=== PATIENT | female | born 1965 | race African-American/Black ===

== ENCOUNTER 2016-09-11 08:39 | Day surgery (SDC) | payer OTHER ==
[2016-09-10 13:28] VITALS: BMI 31.3
[2016-09-11] MEDS ORDERED: oxyCODONE HCL 5 MG TABLET PO ONE (10:14)
[2016-09-11] MEDS ORDERED: MIDAZOLAM HCL 2 MG/2 ML SINGLE DOSE VIAL ONE ×2 (11:18)
[2016-09-11] MEDS ORDERED: PROPOFOL 20 ML ONE ×2 (11:23→11:34)
[2016-09-11] MEDS ORDERED: LACTATED RINGERS SOLUTION 1,000 ML IV SCH (11:45)
[2016-09-11] MEDS ORDERED: ONDANSETRON 4 MG/2 ML VIAL IVPUSH PRN (12:00)
[2016-09-11 19:00] VITALS: BP 155/90; PULSE 72; TEMP 98.1
--- NOTE | 2016-09-12 12:04 | OP ---
DATE OF OPERATION: 09/11/2016 PREOPERATIVE DIAGNOSIS: Low back pain with lumbar radiculopathy on left side. POSTOPERATIVE DIAGNOSIS: Low back pain with lumbar radiculopathy on left side. ANESTHESIA: Local and MAC. ANESTHESIOLOGIST: Juanito Calabrese CRNA PROCEDURE: I discussed with her about risks, benefits, and alternative treatments, not only limited to infection, fever, holding area, numbness, tingling, weakness, injury to blood vessels, muscles, and nerves. Patient understood, agreed, and signed the written consent. The patient was placed in the prone position. Head, neck, abdomen supported with pillow. Lumbosacral are was prepped with Betadine x3 and draped. Left L4-5 area was identified. At this level 3 mL of 1% lidocaine was injected. A 3-1/2-inch 20-gauge Tuohy needle was used to approach the epidural space with loss of resistance technique interlaminar at the L4-L5 level. After negative aspiration, 3 mL of Omnipaque 180 was injected to see the flow of dye into the epidural space both cranially and caudally. There was no venous uptake or spread into CSF. Celestone 2.5 mL mixed with 2.5 mL of Marcaine 0.25% preservative-free, total of 5 mL was injected into the epidural space after negative aspiration. While needle was withdrawn, 2 mL of 1% lidocaine was infiltrated. Patient tolerated the procedure well. There were no immediate complications. Betadine was wiped off. Sterile bandage was placed. The patient was transferred to recovery room. Patient was told to apply ice. If any problem, call me or report to the [facility]. Patient will follow up in the office. EVE BREWER M.D. [id number]
== END 2016-09-11 12:50 | disposition home or self-care (01) ==
LOC: FASU 08:39
PROVIDERS: ATTEND Physical Medicine & Rehabilitation
PROC: 3E0R3CZ (ICD-10-PCS; 2016-09-11)
PROC: B01B1ZZ Fluoroscopy of Spinal Cord using Low Osmolar Contrast (ICD-10-PCS; 2016-09-11)
PROC: 3E0R33Z Introduction of Anti-inflammatory into Spinal Canal, Percutaneous Approach (ICD-10-PCS; principal; 2016-09-11 11:27)
DX: M54.16 Radiculopathy, lumbar region (principal); M54.5 Low back pain
CPT/HCPCS: 72100-TC

== ENCOUNTER 2016-10-16 07:17 | Day surgery (SDC) | payer OTHER ==
[2016-10-09 10:44] VITALS: BMI 31.0
[2016-10-16 07:38] VITALS: TEMP 98.1
[2016-10-16] MEDS ORDERED: MIDAZOLAM HCL 2 MG/2 ML SINGLE DOSE VIAL ONE (09:20)
[2016-10-16] MEDS ORDERED: PROPOFOL 20 ML ONE ×2 (09:20→10:24)
[2016-10-16] MEDS ORDERED: BUPIVACAINE HCL/PF 2.5 MG/ML - 30 ML VIAL IJ ONE (09:22)
[2016-10-16] MEDS ORDERED: BUPIVACAINE HCL/PF 0.5% (5MG/ML) 10 ML VIAL ONE (09:22)
[2016-10-16 11:31] VITALS: BP 142/80; PULSE 62
--- NOTE | 2016-10-16 12:09 | OP ---
DATE OF OPERATION: 10/16/2016 PREOPERATIVE DIAGNOSIS: Low back pain with lumbar radiculopathy. POSTOPERATIVE DIAGNOSIS: Low back pain with lumbar radiculopathy. PROCEDURE: Lumbar epidural steroid injection intraluminal at right L4-L5 level. ANESTHESIA: Local and MAC. ANESTHESIOLOGIST: Dr. Wilson DESCRIPTION OF PROCEDURE: I discussed with her about risks, benefits, and alternative treatment not only limited to infection, fever, headache, numbness, weakness, injury to blood vessels, muscles, and nerves. The patient understood, agreed, and signed the written consent. The patient was placed in prone position with head, abdomen, and legs supported with pillows. The lumbosacral area was prepped and draped with Betadine x3 and alcohol x3. The lumbosacral area was identified under fluoroscopy. At the level of right L4-L5, there was 2 mL of 1% lidocaine infiltrated into the skin and subcutaneous tissue. A 20-gauge 3-1/2- inch Tuohy needle was used to approach the epidural space with crul-te-yaduzsxayz technique with intermittent fluoroscopy both AP and oblique view. Aspiration was done, which was negative for CSF and blood. Omnipaque 180 was injected to see the flow type both cranially and caudally. There was no vascular spread of CSF. Then 2.5 mL of betamethasone mixed with 0.25% Marcaine. A total volume of 4 mL was injected into the epidural space after negative aspiration. While Tuohy needle was withdrawn, 1 mL of 1% lidocaine was injected. Bleeding was checked. Betadine was wiped off. A sterile bandage was placed. The patient was transferred to recovery room. The patient was observed and discharged as per ASU criteria. The patient was given a follow up appointment. The patient was told to apply ice. If any problem, call me or report to the ER. Jamaal DANIELS/[id number] MTDJayy
== END 2016-10-16 11:30 | disposition home or self-care (01) ==
LOC: FASU 07:17
PROVIDERS: ATTEND Physical Medicine & Rehabilitation
PROC: 3E0R3CZ (ICD-10-PCS; 2016-10-16)
PROC: B01B1ZZ Fluoroscopy of Spinal Cord using Low Osmolar Contrast (ICD-10-PCS; 2016-10-16)
PROC: 3E0R33Z Introduction of Anti-inflammatory into Spinal Canal, Percutaneous Approach (ICD-10-PCS; principal; 2016-10-16 10:24)
DX: M54.16 Radiculopathy, lumbar region (principal); M54.5 Low back pain
CPT/HCPCS: 72100-TC

== ENCOUNTER 2017-04-23 08:45 | Day surgery (SDC) | payer OTHER ==
[2017-04-22 11:05] VITALS: BMI 31.3
[2017-04-23 09:06] VITALS: TEMP 97.8
[2017-04-23] MEDS ORDERED: MIDAZOLAM HCL 2 MG/2 ML SINGLE DOSE VIAL ONE ×2 (09:44→10:03)
[2017-04-23 11:39] VITALS: BP 140/91; PULSE 75
--- NOTE | 2017-04-23 11:47 | PROC ---
Procedure Note Procedure: Date of service: 04/23/2017 Preoperative Diagnosis: Low back pain and lumbar radiculopathy on Left Postoperative Diagnosis: Same Procedure Performed: Lumbar Epidural Steroid Injection (LESI) on Left L4-5with dye under Fluoroscopy Anesthesia: Local / MAC Anesthesiologist: Procedure: I discussed with the patient in detail about the risks, benefits, and alternatives to treatment not only limited to infection, headache, numbness , weakness, and injury to nerves, blood vessels and muscles. The patient understood, agreed and signed the written consent. The patient was placed in the prone position with the head, abdomen and legs supported with the pillows. The lumbosacral area was prepped and draped with Betadine times three in a sterile fashion. Lumbar vertebrae were identified under the C-arm. At L4-5 level on the Left side, 3 ml of 1 % Lidocaine was infiltrated into the skin and subcutaneous tissue. A 3 inch, #20 gauge Tuohy needle was advanced to the epidural space with loss of resistance technique under fluoroscopic guidance. Aspiration was negative for cerebrospinal fluid and blood. 2ml of Omnipaque ( radio-opaque dye) was injected to confirm the tip of the needle into epidural space and spread of dye. There was no CSF or vascular spread. The spread of dye was noted cranially and caudally on epidurogram. Aspiration was done again which was negative. A solution of 2.5 ml of Celestone, 2.5 ml of 0.25% Marcaine and a total of 5 ml was injected slowly. While Tuohy needle was withdrawn 2.0 ml of 1 % Lidocaine was infiltrated. Bleeding was checked. Betadine was wiped off. A sterile bandage was placed. The patient tolerated the procedure well. There were no immediate complications. The patient was transferred to the recovery room. The patient was observed for some time and discharged as per ASU criteria. The patient was told to apply ice at the injection site. Follow up appointment was given and also call my office at [phone]. If there is any problem, call my office or report to Emergency Room. Elias Lo M.D.
== END 2017-04-23 11:55 | disposition home or self-care (01) ==
LOC: JASU-SURG 08:45
PROVIDERS: ATTEND Physical Medicine & Rehabilitation
PROC: 3E0R33Z Introduction of Anti-inflammatory into Spinal Canal, Percutaneous Approach (ICD-10-PCS; 2017-04-23)
PROC: B01BYZZ Fluoroscopy of Spinal Cord using Other Contrast (ICD-10-PCS; 2017-04-23)
PROC: 3E0R3BZ Introduction of Anesthetic Agent into Spinal Canal, Percutaneous Approach (ICD-10-PCS; principal; 2017-04-23 10:30)
DX: M54.16 Radiculopathy, lumbar region (principal); M54.5 Low back pain
CPT/HCPCS: 76000-TC

== ENCOUNTER 2017-07-09 08:30 | Day surgery (SDC) | payer OTHER ==
[2017-07-05 13:10] VITALS: BMI 31.0
[2017-07-09 09:05] VITALS: TEMP 97.7
[2017-07-09] MEDS ORDERED: SUCCINYLCHOLINE CHLORIDE 200 MG/10 ML VIAL ONE (10:34)
[2017-07-09] MEDS ORDERED: PROPOFOL 20 ML ONE ×2 (10:34→10:45)
[2017-07-09] MEDS ORDERED: LIDOCAINE HCL 1%, 10 MG/ML (20ML VIAL) INF ONE (10:43)
[2017-07-09] MEDS ORDERED: IOHEXOL 180 MG/1 ML ML IJ ONE (10:44)
[2017-07-09] MEDS ORDERED: BUPIVACAINE HCL/PF 0.25% (2.5MG/ML) 10 ML VIAL IJ ONE (10:51)
[2017-07-09] MEDS ORDERED: BETAMET ACET/BETAMET NA PH 30 MG/5 ML VIAL IJ ONE (10:51)
[2017-07-09 11:16] VITALS: PULSE 85
[2017-07-09 12:39] VITALS: BP 131/71
--- NOTE | 2017-07-23 13:41 | PROC ---
Procedure Note Procedure: Date of service: 07/09/2017 Preoperative Diagnosis: Low back pain and lumbar radiculopathy on Left Postoperative Diagnosis: Same Procedure Performed: Lumbar Epidural Steroid Injection (LESI) on Left L4-5 with dye under Fluoroscopy Anesthesia: Local / MAC Anesthesiologist: Procedure: I discussed with the patient in detail about the risks, benefits, and alternatives to treatment not only limited to infection, headache, numbness , weakness, and injury to nerves, blood vessels and muscles. The patient understood, agreed and signed the written consent. The patient was placed in the prone position with the head, abdomen and legs supported with the pillows. The lumbosacral area was prepped and draped with Betadine times three in a sterile fashion. Lumbar vertebrae were identified under the C-arm. At L4-5 level on the Left side, 3 ml of 1 % Lidocaine was infiltrated into the skin and subcutaneous tissue. A 3 inch, #20 gauge Tuohy needle was advanced to the epidural space with loss of resistance technique under fluoroscopic guidance. Aspiration was negative for cerebrospinal fluid and blood. 2ml of Omnipaque ( radio-opaque dye) was injected to confirm the tip of the needle into epidural space and spread of dye. There was no CSF or vascular spread. The spread of dye was noted cranially and caudally on epidurogram. Aspiration was done again which was negative. A solution of 2.5 ml of Celestone, 2.5 ml of 0.25% Marcaine and a total of 5 ml was injected slowly. While Tuohy needle was withdrawn 2.0 ml of 1 % Lidocaine was infiltrated. Bleeding was checked. Betadine was wiped off. A sterile bandage was placed. The patient tolerated the procedure well. There were no immediate complications. The patient was transferred to the recovery room. The patient was observed for some time and discharged as per ASU criteria. The patient was told to apply ice at the injection site. Follow up appointment was given and also call my office at [phone]. If there is any problem, call my office or report to Emergency Room. Elias Lo M.D.
== END 2017-07-09 12:43 | disposition home or self-care (01) ==
LOC: JASU-SURG 08:30
PROVIDERS: ATTEND Physical Medicine & Rehabilitation
PROC: 3E0R33Z Introduction of Anti-inflammatory into Spinal Canal, Percutaneous Approach (ICD-10-PCS; 2017-07-09)
PROC: B01BYZZ Fluoroscopy of Spinal Cord using Other Contrast (ICD-10-PCS; 2017-07-09)
PROC: 3E0R3BZ Introduction of Anesthetic Agent into Spinal Canal, Percutaneous Approach (ICD-10-PCS; principal; 2017-07-09 10:00)
DX: M54.16 Radiculopathy, lumbar region (principal); M54.5 Low back pain
CPT/HCPCS: 76000-TC-FY

== ENCOUNTER 2017-11-05 07:12 | Day surgery (SDC) | payer OTHER ==
[2017-11-04 17:11] VITALS: BMI 31.1
[2017-11-05] MEDS ORDERED: PROPOFOL 20 ML ONE (08:57)
[2017-11-05] MEDS ORDERED: LIDOCAINE HCL 1%, 10 MG/ML (20ML VIAL) INF ONE (09:03)
[2017-11-05] MEDS ORDERED: IOHEXOL 180 MG/1 ML ML IJ ONE (09:04)
[2017-11-05] MEDS ORDERED: BUPIVACAINE HCL/PF 0.25% (2.5MG/ML) 10 ML VIAL IJ ONE (09:06)
[2017-11-05] MEDS ORDERED: BETAMET ACET/BETAMET NA PH 30 MG/5 ML VIAL IM ONE (09:07)
[2017-11-05 09:25] VITALS: TEMP 98.8
[2017-11-05 10:11] VITALS: BP 139/89; PULSE 75
--- NOTE | 2017-11-05 12:35 | PROC ---
Procedure Note Procedure: Date of service: 11/05/2017 Preoperative Diagnosis: Low back pain and lumbar radiculopathy on right Postoperative Diagnosis: Same Procedure Performed: Lumbar Epidural Steroid Injection (LESI) on Right L4-5 with dye under Fluoroscopy Anesthesia: Local / MAC Anesthesiologist: Dr. Cano Procedure: I discussed with the patient in detail about the risks, benefits, and alternatives to treatment not only limited to infection, headache, numbness , weakness, and injury to nerves, blood vessels and muscles. The patient understood, agreed and signed the written consent. The patient was placed in the prone position with the head, abdomen and legs supported with the pillows. The lumbosacral area was prepped and draped with Betadine times three in a sterile fashion. Lumbar vertebrae were identified under the C-arm. At L4-5 level on the right side, 3 ml of 1 % Lidocaine was infiltrated into the skin and subcutaneous tissue. A 3 inch, #20 gauge Tuohy needle was advanced to the epidural space with loss of resistance technique under fluoroscopic guidance. Aspiration was negative for cerebrospinal fluid and blood. 2ml of Omnipaque ( radio-opaque dye) was injected to confirm the tip of the needle into epidural space and spread of dye. There was no CSF or vascular spread. The spread of dye was noted cranially and caudally on epidurogram. Aspiration was done again which was negative. A solution of 2.5 ml of Celestone, 2.5 ml of 0.25% Marcaine and 2 ml of preservative-free Normal Saline and a total of 5 ml was injected slowly. While Tuohy needle was withdrawn 2.0 ml of 1 % Lidocaine was infiltrated. Bleeding was checked. Betadine was wiped off. A sterile bandage was placed. The patient tolerated the procedure well. There were no immediate complications. The patient was transferred to the recovery room. The patient was observed for some time and discharged as per ASU criteria. The patient was told to apply ice at the injection site. Follow up appointment was given and also call my office at [phone]. If there is any problem, call my office or report to Emergency Room. Elias Lo M.D.
== END 2017-11-05 10:10 | disposition home or self-care (01) ==
LOC: JASU-SURG 07:12
PROVIDERS: ATTEND Physical Medicine & Rehabilitation
PROC: 3E0R33Z Introduction of Anti-inflammatory into Spinal Canal, Percutaneous Approach (ICD-10-PCS; 2017-11-05)
PROC: B01BYZZ Fluoroscopy of Spinal Cord using Other Contrast (ICD-10-PCS; 2017-11-05)
PROC: 3E0R3BZ Introduction of Anesthetic Agent into Spinal Canal, Percutaneous Approach (ICD-10-PCS; principal; 2017-11-05 08:30)
DX: M54.16 Radiculopathy, lumbar region (principal); M54.5 Low back pain
CPT/HCPCS: 76000-TC-FY

== ENCOUNTER 2017-12-31 08:06 | Day surgery (SDC) | payer OTHER ==
[2017-12-30 08:41] VITALS: BMI 31.1
[2017-12-31 08:28] VITALS: TEMP 98
[2017-12-31] MEDS ORDERED: MIDAZOLAM HCL 2 MG/2 ML SINGLE DOSE VIAL ONE ×2 (10:58→11:01)
[2017-12-31] MEDS ORDERED: BUPIVACAINE HCL/PF (5 MG/ML) 30 ML VIAL IJ ONE (11:02)
[2017-12-31] MEDS ORDERED: LIDOCAINE HCL 1%, 10 MG/ML (20ML VIAL) PNB ONE (11:03)
[2017-12-31] MEDS ORDERED: BETAMET ACET/BETAMET NA PH 30 MG/5 ML VIAL IM ONE (11:03)
[2017-12-31 13:03] VITALS: BP 126/78; PULSE 80
== END 2017-12-31 13:04 | disposition home or self-care (01) ==
LOC: JASU-SURG 08:06
PROVIDERS: ATTEND Physical Medicine & Rehabilitation
PROC: 3E0T33Z Introduction of Anti-inflammatory into Peripheral Nerves and Plexi, Percutaneous Approach (ICD-10-PCS; 2017-12-31)
PROC: BR16YZZ Fluoroscopy of Lumbar Facet Joint(s) using Other Contrast (ICD-10-PCS; 2017-12-31)
PROC: 3E0T3BZ Introduction of Anesthetic Agent into Peripheral Nerves and Plexi, Percutaneous Approach (ICD-10-PCS; principal; 2017-12-31 09:30)
DX: M46.89 Other specified inflammatory spondylopathies, multiple sites in spine (principal); M54.5 Low back pain; M54.16 Radiculopathy, lumbar region
CPT/HCPCS: 76000-TC-FY

== ENCOUNTER 2018-01-28 07:36 | Day surgery (SDC) | payer OTHER ==
[2018-01-27 15:31] VITALS: BMI 33.6
[~2018-01-28 07:36] MED LIST: BETAMET ACET/BETAMET NA PH 30 MG/5 ML VIAL IM ONE; BUPIVACAINE HCL/PF 0.25% (2.5MG/ML) 10 ML VIAL IJ ONE; LIDOCAINE HCL 1% PRESERVATIVE FREE - 30ML VIAL IJ ONE
[2018-01-28 07:54] VITALS: TEMP 98.4
[2018-01-28] MEDS ORDERED: PROPOFOL 20 ML ONE ×3 (08:43→09:55)
[2018-01-28] MEDS ORDERED: MIDAZOLAM HCL 2 MG/2 ML SINGLE DOSE VIAL ONE ×2 (08:45)
[2018-01-28] MEDS ORDERED: LIDOCAINE HCL/PF 2% SDV 5ML VIAL ONE (08:45)
[2018-01-28] MEDS ORDERED: SUCCINYLCHOLINE CHLORIDE 200 MG/10 ML VIAL ONE (08:47)
[2018-01-28] MEDS ORDERED: BUPIVACAINE HCL/PF 0.5% (5MG/ML) 10 ML VIAL IJ ONE ×2 (09:50)
[2018-01-28] MEDS ORDERED: IOHEXOL 180 MG/1 ML ML IJ ONE (09:50)
[2018-01-28] MEDS ORDERED: LIDOCAINE HCL 1% PRESERVATIVE FREE - 30ML VIAL IJ ONE (09:50)
[2018-01-28] MEDS ORDERED: BETAMET ACET/BETAMET NA PH 30 MG/5 ML VIAL IM ONE (09:50)
[2018-01-28 13:03] VITALS: BP 160/94; PULSE 64
== END 2018-01-28 11:30 | disposition home or self-care (01) ==
LOC: JASU-SURG 07:36
PROVIDERS: ATTEND Physical Medicine & Rehabilitation
PROC: 3E0T33Z Introduction of Anti-inflammatory into Peripheral Nerves and Plexi, Percutaneous Approach (ICD-10-PCS; 2018-01-28)
PROC: BR16YZZ Fluoroscopy of Lumbar Facet Joint(s) using Other Contrast (ICD-10-PCS; 2018-01-28)
PROC: 3E0T3BZ Introduction of Anesthetic Agent into Peripheral Nerves and Plexi, Percutaneous Approach (ICD-10-PCS; principal; 2018-01-28 09:00)
DX: M46.89 Other specified inflammatory spondylopathies, multiple sites in spine (principal); M54.5 Low back pain
CPT/HCPCS: 76000-TC-FY

== ENCOUNTER 2018-07-22 10:40 | Day surgery (SDC) | payer OTHER ==
[~2018-07-22 10:40] MED LIST changes: +BETAMET ACET/BETAMET NA PH 30 MG/5 ML VIAL IJ ONE; -BETAMET ACET/BETAMET NA PH 30 MG/5 ML VIAL IM ONE; +IOHEXOL 180 MG/1 ML ML IJ ONE; -LIDOCAINE HCL 1% PRESERVATIVE FREE - 30ML VIAL IJ ONE; +LIDOCAINE HCL 1%, 10 MG/ML (50 mL VIAL) IJ ONE
[2018-07-22 11:01] VITALS: BMI 33.6
[2018-07-22] MEDS ORDERED: PROPOFOL 20 ML ONE ×2 (12:04→12:13)
[2018-07-22] MEDS ORDERED: MIDAZOLAM HCL 2 MG/2 ML SINGLE DOSE VIAL ONE (12:04)
[2018-07-22] MEDS ORDERED: IOHEXOL 180 MG/1 ML ML IJ ONE (12:14)
[2018-07-22] MEDS ORDERED: LIDOCAINE HCL 1%, 10 MG/ML (50 mL VIAL) IJ ONE (12:14)
[2018-07-22] MEDS ORDERED: BETAMET ACET/BETAMET NA PH 30 MG/5 ML VIAL IJ ONE (12:14)
[2018-07-22] MEDS ORDERED: BUPIVACAINE HCL/PF 0.25% (2.5MG/ML) 10 ML VIAL IJ ONE (12:14)
--- NOTE | 2018-07-22 12:26 | PROC ---
Procedure Note Procedure: Date of service: 07/22/2018 Preoperative Diagnosis: Low back pain and lumbar radiculopathy on Left Postoperative Diagnosis: Same Procedure Performed: Lumbar Epidural Steroid Injection (LESI) on Left L4-5 with dye under Fluoroscopy Anesthesia: Local / MAC Anesthesiologist: Procedure: I discussed with the patient in detail about the risks, benefits, and alternatives to treatment not only limited to infection, headache, numbness , weakness, and injury to nerves, blood vessels and muscles. The patient understood, agreed and signed the written consent. The patient was placed in the prone position with the head, abdomen and legs supported with the pillows. The lumbosacral area was prepped and draped with Betadine times three in a sterile fashion. Lumbar vertebrae were identified under the C-arm. At L4-5 level on the Left side, 3 ml of 1 % Lidocaine was infiltrated into the skin and subcutaneous tissue. A 3 inch, #20 gauge Tuohy needle was advanced to the epidural space with loss of resistance technique under fluoroscopic guidance. Aspiration was negative for cerebrospinal fluid and blood. 2ml of Omnipaque ( radio-opaque dye) was injected to confirm the tip of the needle into epidural space and spread of dye. There was no CSF or vascular spread. The spread of dye was noted cranially and caudally on epidurogram. Aspiration was done again which was negative. A solution of 2.5 ml of Celestone, 2.5 ml of 0.25% Marcaine and a total of 5 ml was injected slowly. While Tuohy needle was withdrawn 2.0 ml of 1 % Lidocaine was infiltrated. Bleeding was checked. Betadine was wiped off. A sterile bandage was placed. The patient tolerated the procedure well. There were no immediate complications. The patient was transferred to the recovery room. The patient was observed for some time and discharged as per ASU criteria. The patient was told to apply ice at the injection site. Follow up appointment was given and also call my office at [phone]. If there is any problem, call my office or report to Emergency Room. Elias Lo M.D.
[2018-07-22 12:57] VITALS: TEMP 97.5
[2018-07-22 13:35] VITALS: BP 151/88; PULSE 76
== END 2018-07-22 13:36 | disposition home or self-care (01) ==
LOC: JASU-SURG 10:40
PROVIDERS: ATTEND Physical Medicine & Rehabilitation
PROC: 3E0R33Z Introduction of Anti-inflammatory into Spinal Canal, Percutaneous Approach (ICD-10-PCS; 2018-07-22)
PROC: B01BYZZ Fluoroscopy of Spinal Cord using Other Contrast (ICD-10-PCS; 2018-07-22)
PROC: 3E0R3BZ Introduction of Anesthetic Agent into Spinal Canal, Percutaneous Approach (ICD-10-PCS; principal; 2018-07-22 12:30)
DX: M54.16 Radiculopathy, lumbar region (principal); M54.5 Low back pain

== ENCOUNTER 2018-10-14 08:38 | Day surgery (SDC) | payer OTHER ==
[2018-10-13 11:58] VITALS: BMI 33.5
[2018-10-14] MEDS ORDERED: MIDAZOLAM HCL 2 MG/2 ML SINGLE DOSE VIAL ONE (09:09)
[2018-10-14] MEDS ORDERED: oxyCODONE HCL 5 MG TABLET PO PRN ×2 (10:07)
[2018-10-14] MEDS ORDERED: PROPOFOL 20 ML ONE ×2 (10:53)
[2018-10-14] MEDS ORDERED: LIDOCAINE HCL 1%, 10 MG/ML (20ML VIAL) NR ONE (11:03)
[2018-10-14] MEDS ORDERED: IOHEXOL 180 MG/1 ML ML IJ ONE (11:04)
[2018-10-14] MEDS ORDERED: BETAMET ACET/BETAMET NA PH 30 MG/5 ML VIAL IM ONE (11:05)
[2018-10-14] MEDS ORDERED: BUPIVACAINE HCL/PF 0.25% (2.5MG/ML) 10 ML VIAL IJ ONE (11:06)
[2018-10-14] MEDS ORDERED: LIDOCAINE HCL 1%, 10 MG/ML (20ML VIAL) ONE (11:08)
[2018-10-14] MEDS ORDERED: BUPIVACAINE HCL/PF 0.25% (2.5MG/ML) 10 ML VIAL ONE (11:08)
[2018-10-14] MEDS ORDERED: BETAMET ACET/BETAMET NA PH 30 MG/5 ML VIAL ONE (11:08)
[2018-10-14 11:51] VITALS: TEMP 98.3
[2018-10-14 12:17] VITALS: BP 139/88; PULSE 78
== END 2018-10-14 12:21 | disposition home or self-care (01) ==
LOC: JASU-SURG 08:38
PROVIDERS: ATTEND Physical Medicine & Rehabilitation
PROC: 3E0R33Z Introduction of Anti-inflammatory into Spinal Canal, Percutaneous Approach (ICD-10-PCS; 2018-10-14)
PROC: B01BYZZ Fluoroscopy of Spinal Cord using Other Contrast (ICD-10-PCS; 2018-10-14)
PROC: 3E0R3BZ Introduction of Anesthetic Agent into Spinal Canal, Percutaneous Approach (ICD-10-PCS; principal; 2018-10-14 09:30)
DX: M54.16 Radiculopathy, lumbar region (principal); M54.5 Low back pain
CPT/HCPCS: 76000-TC-FY

== ENCOUNTER 2018-12-26 08:46 | Day surgery (SDC) | payer OTHER ==
[2018-12-25 16:12] VITALS: BMI 33.6
[2018-12-26] MEDS ORDERED: BETAMET ACET/BETAMET NA PH 30 MG/5 ML VIAL IM ONE (10:37)
[2018-12-26] MEDS ORDERED: IOHEXOL 180 MG/1 ML ML IT ONE (10:39)
[2018-12-26] MEDS ORDERED: PROPOFOL 20 ML ONE ×3 (10:47→11:13)
[2018-12-26] MEDS ORDERED: BUPIVACAINE HCL/PF 0.5% (5MG/ML) 10 ML VIAL IJ ONE (10:50)
[2018-12-26] MEDS ORDERED: LIDOCAINE HCL 1%, 10 MG/ML (20ML VIAL) INF ONE (10:50)
[2018-12-26 11:28] VITALS: TEMP 97.7
[2018-12-26] MEDS ORDERED: oxyCODONE HCL 5 MG TABLET PO PRN ×2 (12:05)
[2018-12-26] MEDS ORDERED: oxyCODONE HCL 5 MG TABLET ONE (12:13)
[2018-12-26 13:14] VITALS: BP 139/90; PULSE 78
== END 2018-12-26 13:10 | disposition home or self-care (01) ==
LOC: JASU-SURG 08:46
PROVIDERS: ATTEND Physical Medicine & Rehabilitation
PROC: 3E0R3BZ Introduction of Anesthetic Agent into Spinal Canal, Percutaneous Approach (ICD-10-PCS; 2018-12-26)
PROC: 3E0R33Z Introduction of Anti-inflammatory into Spinal Canal, Percutaneous Approach (ICD-10-PCS; 2018-12-26)
PROC: BR16YZZ Fluoroscopy of Lumbar Facet Joint(s) using Other Contrast (ICD-10-PCS; principal; 2018-12-26 08:30)
DX: M46.96 Unspecified inflammatory spondylopathy, lumbar region (principal); M54.5 Low back pain
CPT/HCPCS: 76000-TC-FY

== ENCOUNTER 2019-05-04 11:38 | Day surgery (SDC) | payer OTHER ==
[2019-05-04 11:58] VITALS: BMI 33.5
[2019-05-04] MEDS ORDERED: LIDOCAINE HCL 1%, 10 MG/ML (20ML VIAL) ONE (14:19)
[2019-05-04] MEDS ORDERED: MIDAZOLAM HCL 2 MG/2 ML SINGLE DOSE VIAL ONE ×3 (14:29→14:47)
[2019-05-04] MEDS ORDERED: BUPIVACAINE HCL/PF 0.5% (5 MG/ML) 30 ML VIAL IJ ONE (14:49)
[2019-05-04] MEDS ORDERED: LIDOCAINE HCL 1%, 10 MG/ML (20ML VIAL) INF ONE (14:49)
[2019-05-04] MEDS ORDERED: IOHEXOL 180 MG/1 ML ML IJ ONE (14:49)
[2019-05-04] MEDS ORDERED: PROPOFOL 20 ML ONE (14:51)
[2019-05-04 15:24] VITALS: BP 127/78; PULSE 71; TEMP 97.1
--- NOTE | 2019-05-19 22:37 | PROC ---
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 The patient understood, agreed and signed the written consent. The patient was placed in the prone position with the head, abdomen and legs supported with the pillows. The patients lower back was prepped and draped in a sterile fashion. Under C-arm and Scottie dog view eye was identified the L2-3, L3-4 and L4-5 levels on Left/Right side. At the level of L3-4 (L3) on Rigth , 2 ml of 1% Lidocaine was infiltrated into the skin and subcutaneous tissue. A 5 inch #22 guage spinal needle was used to approach the eye of the Scottie dog in the oblique view until the tip of the needle contacted the bone with the use of intermittent fluoroscopy. Needle placement was confirmed both in the AP and oblique view. Aspiration was done which was negative for blood. 0.20 ml of dye omnipaque was injected to see the spread of the dye. A solution of O.5% marciane 5 ml mixed with one ml of Celestone was prepared. A solution of 1 ml of this solution was injected at this level. While the needle was withdrawn 1 ml of 1% Lidocaine was infiltrated. A similar procedure was repeated at left/ Right L4-5 (L4) and L5-S1 (L5) and left L3-4 level. The patient tolerated the procedure well. Bleeding was checked. There were no immediate complications. The patient was observed and asked about pain level. The patient mentioned that there was improvement was more than 90%. The patient was told to apply ice at the injection sites. If there is any problem, call my office or report to the ER . The patient was discharged as per ASC criteria. Elias Lo M.D.
== END 2019-05-04 16:20 | disposition home or self-care (01) ==
LOC: JASU-SURG 11:38
PROVIDERS: ATTEND Physical Medicine & Rehabilitation
PROC: 3E0T3BZ Introduction of Anesthetic Agent into Peripheral Nerves and Plexi, Percutaneous Approach (ICD-10-PCS; 2019-05-04)
PROC: BR16YZZ Fluoroscopy of Lumbar Facet Joint(s) using Other Contrast (ICD-10-PCS; 2019-05-04)
PROC: 3E0T33Z Introduction of Anti-inflammatory into Peripheral Nerves and Plexi, Percutaneous Approach (ICD-10-PCS; principal; 2019-05-04 13:30)
DX: M46.96 Unspecified inflammatory spondylopathy, lumbar region (principal); M54.5 Low back pain
CPT/HCPCS: 76000-TC-FY

== ENCOUNTER 2019-07-17 09:09 | Day surgery (SDC) | payer OTHER ==
[2019-07-16 18:06] VITALS: BMI 33.5
[2019-07-17] MEDS ORDERED: PROPOFOL 20 ML ONE ×2 (12:09→12:26)
[2019-07-17] MEDS ORDERED: MIDAZOLAM HCL 2 MG/2 ML SINGLE DOSE VIAL ONE (12:10)
[2019-07-17] MEDS ORDERED: BETAMET ACET/BETAMET NA PH 30 MG/5 ML VIAL ONE ×2 (12:12→12:51)
[2019-07-17] MEDS ORDERED: BUPIVACAINE HCL/PF 0.5% (5MG/ML) 10 ML VIAL IJ ONE (12:23)
[2019-07-17] MEDS ORDERED: LIDOCAINE HCL 1%, 10 MG/ML (20ML VIAL) ONE (12:51)
[2019-07-17] MEDS ORDERED: BUPIVACAINE HCL/PF 0.25% (2.5MG/ML) 10 ML VIAL ONE (12:52)
[2019-07-17 13:19] VITALS: TEMP 97.9
[2019-07-17 14:18] VITALS: BP 130/78; PULSE 70
--- NOTE | 2019-07-19 20:13 | PROC ---
Procedure Note Procedure: Date of service: 07/17/2019 Preoperative Diagnosis: Low back pain and Lumbar Facet Arthropathy on right / Left Postoperative Diagnosis: Same Procedure Performed: Lumbar Facet Diagnosic blocks on Right / Left L3-4/ L4-5/ L5-S1 with dye under Fluoroscopy Anesthesia: Local / MAC Anesthesiologist: Procedure: I discussed with the patient in detail about the risks, benefits and alternatives to treatment not only limited to infection, headache, numbness, weakness and injury to nerves, spinal cord, blood vessels and muscles. The patient understood, agreed and signed the written consent. The patient was placed in the prone position with the head, abdomen and legs supported with the pillows. The patients lower back was prepped and draped in a sterile fashion. Under C-arm and Scottie dog view eye was identified the L2-3, L3-4 and L4-5 levels on Left/Right side. At the level of L3-4 (L3) on Rigth , 2 ml of 1% Lidocaine was infiltrated into the skin and subcutaneous tissue. A 5 inch #22 guage spinal needle was used to approach the eye of the Scottie dog in the oblique view until the tip of the needle contacted the bone with the use of intermittent fluoroscopy. Needle placement was confirmed both in the AP and oblique view. Aspiration was done which was negative for blood. 0.20 ml of dye omnipaque was injected to see the spread of the dye. A solution of O.5% marciane 5 ml mixed with one ml of Celestone was prepared. A solution of 1 ml of this solution was injected at this level. While the needle was withdrawn 1 ml of 1% Lidocaine was infiltrated. A similar procedure was repeated at left/ Right L4-5 (L4) and L5-S1 (L5) and left L3-4 level. The patient tolerated the procedure well. Bleeding was checked. There were no immediate complications. The patient was observed and asked about pain level. The patient mentioned that there was improvement was more than 90%. The patient was told to apply ice at the injection sites. If there is any problem, call my office or report to the ER . The patient was discharged as per ASC criteria. Elias Lo M.D.
== END 2019-07-17 14:00 | disposition home or self-care (01) ==
LOC: JASU-SURG 09:09
PROVIDERS: ATTEND Physical Medicine & Rehabilitation
PROC: 3E0T33Z Introduction of Anti-inflammatory into Peripheral Nerves and Plexi, Percutaneous Approach (ICD-10-PCS; 2019-07-17)
PROC: BR16YZZ Fluoroscopy of Lumbar Facet Joint(s) using Other Contrast (ICD-10-PCS; 2019-07-17)
PROC: 3E0T3BZ Introduction of Anesthetic Agent into Peripheral Nerves and Plexi, Percutaneous Approach (ICD-10-PCS; principal; 2019-07-17 11:00)
DX: M47.816 Spondylosis without myelopathy or radiculopathy, lumbar region (principal); M54.5 Low back pain
CPT/HCPCS: 76000-TC-FY

== ENCOUNTER 2020-05-24 04:41 | Day surgery (SDC) | payer OTHER ==
[2020-05-20 14:50] VITALS: BMI 34.4
[2020-05-24] MEDS ORDERED: BUPIVACAINE HCL/PF 0.25% (2.5MG/ML) 10 ML VIAL IJ ONE ×2 (09:35)
[2020-05-24] MEDS ORDERED: LIDOCAINE HCL 1% PRESERVATIVE FREE - 30ML VIAL IJ ONE (09:35)
[2020-05-24] MEDS ORDERED: DEXAMETHASONE SOD PHOSPHATE 10 MG/1 ML VIAL IM ONE (09:35)
[2020-05-24] MEDS ORDERED: IOHEXOL 180 MG/1 ML ML IJ ONE (09:35)
[2020-05-24 12:42] VITALS: BP 130/80; PULSE 80; TEMP 97.8
== END 2020-05-24 11:30 | disposition home or self-care (01) ==
LOC: JASU-SURG 04:41
PROVIDERS: ATTEND Physical Medicine & Rehabilitation
PROC: 3E0R33Z Introduction of Anti-inflammatory into Spinal Canal, Percutaneous Approach (ICD-10-PCS; 2020-05-24)
PROC: 3E0R3BZ Introduction of Anesthetic Agent into Spinal Canal, Percutaneous Approach (ICD-10-PCS; principal; 2020-05-24 09:00)
DX: M54.16 Radiculopathy, lumbar region (principal); M54.5 Low back pain
CPT/HCPCS: 76000-TC-FY; J1100

== ENCOUNTER 2020-10-20 04:18 | Day surgery (SDC) | payer OTHER ==
[2020-09-27 12:59] VITALS: BMI 33.5
[2020-10-20] MEDS ORDERED: PROPOFOL 20 ML ONE ×2 (12:59→13:20)
[2020-10-20] MEDS ORDERED: MIDAZOLAM HCL 2 MG/2 ML SINGLE DOSE VIAL ONE ×2 (12:59)
[2020-10-20] MEDS ORDERED: LIDOCAINE HCL 1%, 10 MG/ML (20ML VIAL) NR ONE ×2 (13:13)
[2020-10-20] MEDS ORDERED: IOHEXOL 180 MG/1 ML ML IJ ONE (13:13)
[2020-10-20] MEDS ORDERED: DEXAMETHASONE SOD PHOSPHATE 10 MG/1 ML VIAL IM ONE (13:14)
[2020-10-20] MEDS ORDERED: BUPIVACAINE HCL/PF 0.5% (5MG/ML) 10 ML VIAL NR ONE (13:15)
[2020-10-20] MEDS ORDERED: DEXAMETHASONE SOD PHOSPHATE/PF 10 MG/ML SDV ONE (13:47)
[2020-10-20 16:25] VITALS: BP 151/86; PULSE 87; TEMP 97.3
== END 2020-10-20 16:27 | disposition home or self-care (01) ==
LOC: JASU-SURG 04:18
PROVIDERS: ATTEND Physical Medicine & Rehabilitation
PROC: 3E0R33Z Introduction of Anti-inflammatory into Spinal Canal, Percutaneous Approach (ICD-10-PCS; 2020-10-20)
PROC: B01BYZZ Fluoroscopy of Spinal Cord using Other Contrast (ICD-10-PCS; 2020-10-20)
PROC: 3E0R3BZ Introduction of Anesthetic Agent into Spinal Canal, Percutaneous Approach (ICD-10-PCS; principal; 2020-10-20 12:00)
DX: M54.16 Radiculopathy, lumbar region (principal)
CPT/HCPCS: J1100

== ENCOUNTER 2020-11-17 05:19 | Day surgery (SDC) | payer OTHER ==
[2020-11-16 15:04] VITALS: BMI 33.6
[2020-11-17] MEDS ORDERED: LIDOCAINE HCL/PF 1% SDV 5ML VIAL ONE (08:46)
[2020-11-17] MEDS ORDERED: BUPIVACAINE HCL/PF 0.25% (2.5MG/ML) 10 ML VIAL ONE (08:46)
[2020-11-17] MEDS ORDERED: MIDAZOLAM HCL 2 MG/2 ML SINGLE DOSE VIAL ONE (15:29)
[2020-11-17] MEDS ORDERED: PROPOFOL 20 ML ONE (15:29)
[2020-11-17] MEDS ORDERED: BETAMET ACET/BETAMET NA PH 30 MG/5 ML VIAL IM ONE ×2 (15:42)
[2020-11-17] MEDS ORDERED: BUPIVACAINE HCL/PF 0.5% (5MG/ML) 10 ML VIAL IJ ONE ×2 (15:42)
[2020-11-17] MEDS ORDERED: LIDOCAINE HCL 1% PRESERVATIVE FREE - 30ML VIAL IJ ONE (15:42)
[2020-11-17] MEDS ORDERED: IOHEXOL 180 MG/1 ML ML IJ ONE (15:42)
[2020-11-17 17:56] VITALS: BP 138/89; PULSE 72; TEMP 98.3
== END 2020-11-17 16:45 | disposition home or self-care (01) ==
LOC: JASU-SURG 05:19
PROVIDERS: ATTEND Physical Medicine & Rehabilitation
PROC: 3E0T33Z Introduction of Anti-inflammatory into Peripheral Nerves and Plexi, Percutaneous Approach (ICD-10-PCS; 2020-11-17)
PROC: 3E0T3BZ Introduction of Anesthetic Agent into Peripheral Nerves and Plexi, Percutaneous Approach (ICD-10-PCS; principal; 2020-11-17 14:30)
DX: M47.816 Spondylosis without myelopathy or radiculopathy, lumbar region (principal); M54.5 Low back pain
CPT/HCPCS: 76000-TC-FY

== ENCOUNTER 2022-07-26 16:20 | Emergency (ER) | payer OTHER ==
[2022-07-26] MEDS ORDERED: KETOROLAC TROMETHAMINE 30 MG/1 ML VIAL IM ONE (16:38)
[2022-07-26] MEDS ORDERED: ACETAMINOPHEN 500 MG TABLET (FP) PO ONE (16:41)
[2022-07-26 16:50] VITALS: RESP 20; BMI 33.5
[2022-07-26] MEDS ORDERED: DEXAMETHASONE 4 MG TABLET (FP) PO STA (17:04)
[2022-07-26] MEDS ORDERED: DEXAMETHASONE 4 MG TABLET (FP) ONE (17:23)
[2022-07-26] MEDS ORDERED: ALBUTEROL SO4 2.5/IPRATROPIUM 0.5 INH SOL 3 ML VIAL.NEB. NEB ONE (17:23)
[2022-07-26] MEDS ORDERED: ACETAMINOPHEN 500 MG TABLET (FP) ONE (17:23)
[2022-07-26] MEDS ORDERED: KETOROLAC TROMETHAMINE 30 MG/1 ML VIAL ONE (17:24)
[2022-07-26] MEDS: ALBUTEROL SO4 2.5/IPRATROPIUM 0.5 INH SOL 3 ML VIAL.NEB. NEB SCH ×2 (17:38→17:39)
[2022-07-26 18:29] VITALS: BP 146/78; PULSE 80; TEMP 99.9
== END 2022-07-26 18:39 | disposition home or self-care (01) ==
LOC: FER 16:20
PROC: 3E023GC Introduction of Other Therapeutic Substance into Muscle, Percutaneous Approach (ICD-10-PCS; principal; 2022-07-26)
PROC: 3E0F7GC Introduction of Other Therapeutic Substance into Respiratory Tract, Via Natural or Artificial Opening (ICD-10-PCS; 2022-07-26)
DX: J45.901 Unspecified asthma with (acute) exacerbation (principal); J06.9 Acute upper respiratory infection, unspecified
CPT/HCPCS: 0241U-QW; 71045-TC-FY; 99284-25

== ENCOUNTER 2022-09-26 19:31 | Emergency (ER) | payer OTHER ==
[2022-09-26 19:47] VITALS: BP 157/89; PULSE 100; RESP 18; TEMP 98.1; BMI 32.8
== END 2022-09-26 21:21 | disposition home or self-care (01) ==
LOC: FER 19:31
DX: R60.0 Localized edema (principal)
CPT/HCPCS: 73610-TC-RT-FY; 99283-25

== ENCOUNTER 2023-07-01 04:34 | Day surgery (SDC) | payer OTHER ==
[2023-06-27 15:29] VITALS: BMI 33.5
[2023-07-01 08:45] VITALS: RESP 20; TEMP 98.5
[2023-07-01] MEDS ORDERED: DEXAMETHASONE SOD PHOSPHATE 10 MG/1 ML VIAL ONE (10:04)
[2023-07-01] MEDS ORDERED: LIDOCAINE HCL/PF 1% SDV 5ML VIAL ONE (10:04)
[2023-07-01] MEDS ORDERED: MIDAZOLAM HCL 2 MG/2 ML SINGLE DOSE VIAL ONE ×2 (10:17→10:29)
[2023-07-01] MEDS ORDERED: BUPIVACAINE HCL/PF 0.25% (2.5MG/ML) 10 ML VIAL IJ ONE (10:33)
[2023-07-01] MEDS ORDERED: IOHEXOL 180 MG/1 ML ML IJ ONE (10:33)
[2023-07-01] MEDS ORDERED: DEXAMETHASONE SOD PHOSPHATE 10 MG/1 ML VIAL IVPUSH ONE (10:33)
[2023-07-01] MEDS ORDERED: LIDOCAINE HCL 1% PRESERVATIVE FREE - 30ML VIAL IJ ONE (10:33)
[2023-07-01 14:27] VITALS: BP 128/76; PULSE 119
== END 2023-07-01 12:40 | disposition home or self-care (01) ==
LOC: JASU-SURG 04:34
PROVIDERS: ATTEND Physical Medicine & Rehabilitation
PROC: 3E0R3BZ Introduction of Anesthetic Agent into Spinal Canal, Percutaneous Approach (ICD-10-PCS; 2023-07-01)
PROC: 3E0R33Z Introduction of Anti-inflammatory into Spinal Canal, Percutaneous Approach (ICD-10-PCS; principal; 2023-07-01 10:00)
DX: M54.16 Radiculopathy, lumbar region (principal); M54.50 Low back pain, unspecified
CPT/HCPCS: 76000-TC-FY; J1100

== ENCOUNTER 2023-12-30 04:58 | Day surgery (SDC) | payer OTHER ==
[2023-12-30 11:48] VITALS: BMI 34.0
[2023-12-30 11:49] VITALS: PULSE 66; RESP 16; TEMP 97.8
[2023-12-30] MEDS ORDERED: MIDAZOLAM HCL 2 MG/2 ML SINGLE DOSE VIAL ONE (15:12)
[2023-12-30] MEDS ORDERED: ONDANSETRON 4 MG/2 ML VIAL ONE (15:18)
[2023-12-30] MEDS: IOHEXOL 180 MG/1 ML ML IJ ONE (15:20)
[2023-12-30] MEDS: DEXAMETHASONE SOD PHOSPHATE 10 MG/1 ML VIAL IVPUSH ONE (15:20)
[2023-12-30] MEDS: BUPIVACAINE HCL/PF 0.25% (2.5MG/ML) 10 ML VIAL IJ ONE (15:20)
[2023-12-30 15:38] VITALS: BP 135/86
== END 2023-12-30 16:45 | disposition home or self-care (01) ==
LOC: JASU-SURG 04:58
PROVIDERS: ATTEND Physical Medicine & Rehabilitation
PROC: 3E0R3BZ Introduction of Anesthetic Agent into Spinal Canal, Percutaneous Approach (ICD-10-PCS; 2023-12-30)
PROC: 3E0R33Z Introduction of Anti-inflammatory into Spinal Canal, Percutaneous Approach (ICD-10-PCS; principal; 2023-12-30 14:00)
DX: M54.16 Radiculopathy, lumbar region (principal); M54.50 Low back pain, unspecified
CPT/HCPCS: 76000-TC-FY; J1100

== ENCOUNTER 2025-02-09 06:04 | Day surgery (SDC) | payer OTHER ==
[2025-02-03 13:59] VITALS: BMI 29.7
[2025-02-09] MEDS ORDERED: MIDAZOLAM HCL 2 MG/2 ML SINGLE DOSE VIAL ONE ×2 (09:19→09:23)
[2025-02-09] MEDS ORDERED: PROPOFOL 20 ML ONE ×2 (09:25→09:26)
[2025-02-09] MEDS: BUPIVACAINE HCL/PF 0.25% (2.5MG/ML) 10 ML VIAL IJ ONE (09:26)
[2025-02-09] MEDS: LIDOCAINE HCL 1% PRESERVATIVE FREE - 30ML VIAL IJ ONE (09:26)
[2025-02-09] MEDS: DEXAMETHASONE SOD PHOSPHATE 10 MG/1 ML VIAL IVPUSH ONE ×2 (09:27→09:29)
[2025-02-09] MEDS: IOHEXOL 180 MG/1 ML ML IJ ONE (09:27)
[2025-02-09 09:42] VITALS: BP 92/50; PULSE 75; RESP 14; TEMP 98.7
== END 2025-02-09 11:10 | disposition home or self-care (01) ==
LOC: JASU-SURG 06:04
PROVIDERS: ATTEND Physical Medicine & Rehabilitation
PROC: 3E0R3BZ Introduction of Anesthetic Agent into Spinal Canal, Percutaneous Approach (ICD-10-PCS; 2025-02-09)
PROC: 3E0R33Z Introduction of Anti-inflammatory into Spinal Canal, Percutaneous Approach (ICD-10-PCS; principal; 2025-02-09 08:45)
DX: M54.16 Radiculopathy, lumbar region (principal)
CPT/HCPCS: 76000-TC-FY; J1100